=== PATIENT | male | born 1945 | race Caucasian/White ===

== ENCOUNTER 2023-09-09 11:50 | Emergency (ER) | payer OTHER, SELFPAY ==
[2023-09-09 11:55] VITALS: BP 127/44; PULSE 89; RESP 16; TEMP 37.1; O2SAT 99
--- NOTE | 2023-09-09 13:58 | ED.GENADUL_ITS ---
Discharge Plan Disposition Patient Disposition: Home Condition: Stable Discharge Details Clinical Impression: Acute UTI Primary Care Provider: Booker Day ED Provider: Charla Coulter Home Meds and New Rx's Prescriptions: New cephalexin 500 mg tablet 500 mg PO BID 10 Days Qty: 20 0RF Rx Instructions: Take one tablet by mouth twice daily x 10 days Continued losartan 25 mg tablet 25 mg PO DAILY pyridostigmine bromide 30 mg tablet 60 mg PO .5xd insulin glargine [Basaglar KwikPen U-100 Insulin] 100 unit/mL (3 mL) insulin pen 35 unit subcut BID Ozempic 0.25 mg or 0.5 mg (2 mg/3 mL) pen injector 0.5 mg subcut QWEEK Discharge Instructions Instructions: Urinary Tract Infection in Men (ED) Additional Instructions: You have a urinary tract infection. Please follow up with your primary care provider in the next 3 days. Take the antibiotic twice daily with yogurt or probiotic as directed for the next 10 days. You were given the first dose IV here. Increase oral fluids. Please take Tylenol or Ibuprofen with food every 4-6 hours as needed for pain and swelling. Referrals: Booker Day [Primary Care Provider] - 3 days HPI General Mode of arrival: ambulatory . Date/Time Provider Initiated Documentation: 09/09/23 13:03 . Limitations to Documentation: no limitations . Information obtained by: patient, RN notes reviewed and old records reviewed . HPI Narrative: 78 year old male presents to the ED with cc of myalgias, chills, dyruria and low BP that began this am [employer]. Patient has a history of bladder cancer and has been seen recently by nephrology also history of type 2 diabetes. He reports that around 2 AM this morning he got up to go to the bathroom and began having shaking chills, checked his temp at that time and it was 98.4. He also notes some dysuria and low blood pressure 90s over 50s prior to arrival with some blurry vision. Blood pressure slightly improved upon arrival, he is alert and oriented. He [facility] but did not want to drive down to the [place]. He did take his normal medications today. Related Data Home Medications Medication Instructions Recorded Confirmed cephalexin 500 mg tablet 500 mg PO BID UTI 10 days #20 tabs 09/09/23 insulin glargine 100 unit/mL (3 35 unit subcut BID 09/09/23 09/09/23 mL) subcutaneous pen (Basaglar KwikPen U-100 Insulin) losartan 25 mg tablet 25 mg PO DAILY 09/09/23 09/09/23 pyridostigmine bromide 30 mg tablet 60 mg PO .5xd 09/09/23 09/09/23 semaglutide 0.25 mg or 0.5 mg (2 0.5 mg subcut QWEEK 09/09/23 09/09/23 mg/3 mL) subcutaneous pen injector (Ozempic) Previous Rx's Medication Instructions Recorded cephalexin 500 mg tablet 500 mg PO BID UTI 10 days #20 tabs 09/09/23 Allergies Allergy/AdvReac Type Severity Reaction Status Date / Time sulfamethoxazole Allergy Intermediate Other (See Verified 09/09/23 12:03 [From Bactrim] Comment) trimethoprim [From Bactrim] Allergy Intermediate Other (See Verified 09/09/23 12:03 Comment) General Stated Complaint: Urinary KIMBERLEY: 3 Review of Systems All systems reviewed & are unremarkable except as noted in HPI and below Constitutional Constitutional: Reports body ache(s) and Reports chills Cardiovascular Cardiovascular: Reports as per HPI and Denies chest pain Genitourinary Genitourinary: Reports as per HPI and Reports dysuria Exam Narrative Exam Narrative: Constitutional: Alert and oriented x3. Appears stated age. Normal body habitus. Head: Normocephalic, no trauma. Eyes: Pupils PERRL, Red reflex noted, EOM's intact. Eyelids symmetrical without lesions, discharge, or swelling. ENT: Bilateral TM's WNL, External ear normal to inspection, no mastoid TTP, swelling, or erythema, Nasal turbinates WNL, no nasal discharge. Normal dentition, Posterior pharynx WNL, no exudate. Chest: RRR, Normal S1, S2, distal pulses intact. Resp: Lungs clear to auscultation bilaterally, no wheezes, rales, or rhonchi. Abdomen: Soft, non-distended, Normoactive bowel sounds all 4 quads. Musculoskeletal: Normal gait, 5/5 strength to all four extremities. Skin: No suspicious rashes or lesions. Capillary refill less than 2 sec. Neurologic: Cranial nerves II-XII intact. Alert and oriented x 3. Motor: No deficits noted. Sensory: Intact bilaterally all 4 extremities. Reflexes: DTR's intact bilaterally.. Hematologic/Lymphatic: No ecchymosis, no lymphadenopathy. Course Vital Signs Vital signs: Vital Signs Temperature 37.1 C 09/09/23 11:55 Pulse 89 09/09/23 11:55 Respiratory Rate 16 09/09/23 11:55 Blood Pressure 127/44 L 09/09/23 11:55 Pulse Oximetry 99 09/09/23 11:55 Temperature 37.1 C 09/09/23 11:55 Pulse 89 09/09/23 11:55 Respiratory Rate 16 09/09/23 11:55 Blood Pressure 127/44 L 09/09/23 11:55 Pulse Oximetry 99 09/09/23 11:55 Lab/Test Results Lab/Test Results: 09/09/23 13:35 Blood Blood Culture - Pending 09/09/23 13:35 Blood Blood Culture - Pending Medical Decision Making 78 year old male presents to the ED with cc of myalgias, chills, dyruria and low BP that began this am [employer]. Patient has a history of bladder cancer and has been seen recently by nephrology also history of type 2 diabetes. He reports that around 2 AM this morning he got up to go to the bathroom and began having shaking chills, checked his temp at that time and it was 98.4. He also notes some dysuria and low blood pressure 90s over 50s prior to arrival with some blurry vision. Blood pressure slightly improved upon arrival, he is alert and oriented. He is [facility] patient but did not want to drive down to the [place]. He did take his normal medications today. Workup ordered including CBC, CMP, lactate, UA, blood cultures 500 cc normal saline, and a gram of Rocephin. CBC shows white blood cell count of 20.54, absolute neutrophils 17, lactate slightly elevated at 1.5, BUN 28 creatinine 1.7 GFR is 40, glucose 255 bilirubin 1.5 urinalysis shows 15 ketones small blood positive nitrites moderate leukocytes 3-5 RBCs greater than 50 WBCs. Culture is pending at this time. Will give patient cephalexin for UTI. Patient discharged with instructions, remained hemodynamically stable. This text was generated using [employer] system, please disregard any oddities of phrase or misspellings. Lab Data Lab results reviewed: Yes I reviewed the patient's lab results. Labs: 09/09/23 10:30 Urine - Reflex from Ua Urine Culture - Pending 09/09/23 14:15 Blood Blood Culture - Pending 09/09/23 13:55 Blood Blood Culture - Pending Laboratory Tests Range/Units 09/09/23 09/09/23 10:30 13:55 WBC (4.4-10.8) 10^3/uL 20.54 H RBC (4.36-5.78) 10^6/uL 5.29 Hgb (13.5-17.5) g/dL 15.9 Hct (40.0-50.0) % 47.6 MCV (80-95) fL 90 MCH (27.0-33.0) pg 30.1 MCHC (32.0-36.0) % 33.4 RDW (11.8-14.1) % 13.5 Plt Count (130-400) 10^3/uL 165 MPV (8.0-11.0) fL 9.4 Immature Gran % 0.8 Neutrophils % 83.4 Lymphocytes % 6.1 Monocytes % 9.3 Eosinophils % 0.0 Basophils % 0.4 Nucleated RBC % (0.0-0.3) % 0.0 Absolute Neutrophils (1.2-6.7) 10^3/uL 17.13 H Absolute Lymphocytes (1.2-3.4) 10^3/uL 1.25 Absolute Monocytes (0.1-0.8) 10^3/uL 1.91 H Absolute Eosinophils (0.0-0.7) 10^3/uL 0.00 Absolute Basophils (0.0-0.2) 10^3/uL 0.08 VBG Lactate (0.6-1.4) mmol/L 1.5 H Sodium (136-145) mmol/L 137 Potassium (3.5-5.1) mmol/L 4.7 Chloride (98-107) mmol/L 104 Carbon Dioxide (21.0-32.0) mmol/L 27.5 Anion Gap (3-11) mmol/L 5.5 BUN (7-18) mg/dL 28 H Creatinine (0.70-1.30) mg/dL 1.7 H Est GFR (CKD-EPI 2020) (mL/min/1.73m2) 40.50 Glucose (74-106) mg/dL 255 H Calcium (8.5-10.1) mg/dL 8.6 Total Bilirubin (0.2-1.0) mg/dL 1.5 H AST (15-37) U/L 39 H ALT (16-63) U/L 38 Alkaline Phosphatase (46-116) U/L 110 Total Protein (6.4-8.2) g/dL 6.8 Albumin (3.4-5.0) g/dL 3.6 Urine Color (Yellow) Dark Yellow Urine Clarity (Clear) Cloudy Urine pH (5-8) 5.0 Ur Specific Browder (1.005-1.025) 1.025 Urine Protein (Neg-Trace) mg/dL 100 H Urine Ketones (Negative) mg/dL 15 H Urine Blood (Negative) Small H Urine Nitrite (Negative) Positive H Urine Bilirubin (Negative) Small H Urine Urobilinogen (Up to 0.2) mg/dL 1.0 H Ur Leukocyte Esterase (Negative) Moderate H Urine RBC (0-2) HPF 3-5 H Urine WBC (0-5) HPF >50 H Ur Epithelial Cells (Negative) HPF Few Urine Crystals (Negative) HPF Negative Urine Bacteria (Negative) HPF Many Urine Casts (Negative) LPF Negative Urine Mucus (Negative) Trace Ur Culture Indicated? Yes Urine Glucose (Negative) mg/dL Negative Quality:SDOH Health Related Social Needs: No Data to Display PFSH All Active Problems (Updated 09/09/23 @ 14:50 by Charla Coulter NP) Acute UTI (Acute) Social History Smoking risk assessment performed?: No
[2023-09-09 14:03] LABS: Lactate 1.5 mmol/L (0.6-1.4)
[2023-09-09 14:05] LABS: Abs Immature Grans 0.16 10^3/uL (0.0-0.06); Absolute Neutrophil Count 17.13 10^3/uL (1.2-6.7); Basophils % 0.4; HCT 47.6 % (40.0-50.0); HGB 15.9 g/dL (13.5-17.5); Immature Grans % 0.8; Lymphocytes % 6.1; MCH 30.1 pg (27.0-33.0); MCHC 33.4 % (32.0-36.0); MCV 90 fL (80-95); MPV 9.4 fL (8.0-11.0); Monocytes % 9.3; Neutrophils % 83.4; Platelet Count 165 10^3/uL (130-400); RBC 5.29 10^6/uL (4.36-5.78); RDW 13.5 % (11.8-14.1); RDW-SD 45.2 fL; WBC 20.54 10^3/uL (4.4-10.8)
[2023-09-09 14:07] LABS: Absolute Basophil Count 0.08 10^3/uL (0.0-0.2); Absolute Lymphocyte Count 1.25 10^3/uL (1.2-3.4); Absolute Monocyte Count 1.91 10^3/uL (0.1-0.8)
[2023-09-09 14:23] LABS: ALT 38 U/L (16-63); AST 39 U/L (15-37); Albumin 3.6 g/dL (3.4-5.0); Alkaline Phosphatase 110 U/L (46-116); Anion Gap 5.5 mmol/L (3-11); BUN 28 mg/dL (7-18); Bilirubin, Total 1.5 mg/dL (0.2-1.0); CO2 27.5 mmol/L (21.0-32.0); CREATININE 1.7 mg/dL (0.70-1.30); Calcium 8.6 mg/dL (8.5-10.1); Chloride 104 mmol/L (98-107); Glucose 255 mg/dL (74-106); Potassium 4.7 mmol/L (3.5-5.1); Sodium 137 mmol/L (136-145); Total Protein 6.8 g/dL (6.4-8.2)
[2023-09-09 14:28] VITALS: BP 127/44; PULSE 89; RESP 16; TEMP 37.1; O2SAT 99
[2023-09-09 14:37] LABS: Bilirubin Small (Negative); Blood Small (Negative); Clarity Cloudy (Clear); Glucose Negative (Negative); Ketones 15 mg/dL (Negative); Leukocyte Esterase Moderate (Negative); Nitrite Positive (Negative); Specific Gravity 1.025 (1.005-1.025)
[2023-09-09 14:42] LABS: Bacteria Many HPF (Negative); C & S Indicated? Yes; Casts Negative LPF (Negative); Crystals Negative HPF (Negative); Epithelial Cells Few HPF (Negative); Mucus Trace (Negative); WBC >50 HPF (0-5)
[2023-09-09 14:43] VITALS: BP 113/52; PULSE 73; RESP 18; O2SAT 95
[2023-09-09] MEDS: cefTRIAXone 1 GM/50 ML BAG IVPB (14:43)
[2023-09-09] MEDS: Normal Saline 500 ML IV (14:43)
[2023-09-09] MEDS: Cephalexin 500 MG CAP, 2 CAPS/BTL PO (15:35)
[2023-09-09 15:36] VITALS: BP 111/50; PULSE 68; RESP 18; O2SAT 96
== END 2023-09-09 15:36 | disposition home or self-care (01) ==
PROVIDERS: Emergency Provider Registered Nurse Emergency; PCP Nurse Practitioner Family
DX: N39.0 Urinary tract infection, site not specified; Z85.51 Personal history of malignant neoplasm of bladder; E11.9 Type 2 diabetes mellitus without complications
CPT/HCPCS: 36415; 80053; 87040; 87077; 99283; 81003; 81015; 83605; 85025; 87086; 87186; J0696

== ENCOUNTER 2025-04-09 10:52 | Emergency (ER) | payer OTHER, SELFPAY ==
[2025-04-09 10:57] VITALS: BP 176/83; PULSE 67; RESP 20; TEMP 36.8; O2SAT 94
--- NOTE | 2025-04-09 11:32 | W.ED.GENAD ---
Discharge Plan Disposition Patient Disposition: Home Condition: Good Discharge Details Clinical Impression: DVT (deep venous thrombosis) Primary Care Provider: Booker Day ED Provider: Natalie Spears Home Meds and New Rx's Prescriptions: New Eliquis 5 mg tablet 5 mg PO BID Qty: 60 0RF Rx Instructions: 10mg twice daily for 7 days (two tabs each time) then 5mg (one tab) twice a day Continued losartan 25 mg tablet 25 mg PO DAILY pyridostigmine bromide 30 mg tablet 60 mg PO .5xd insulin glargine [Basaglar KwikPen U-100 Insulin] 100 unit/mL (3 mL) insulin pen 35 unit subcut BID Ozempic 0.25 mg or 0.5 mg (2 mg/3 mL) pen injector 0.5 mg subcut QWEEK Discharge Instructions Instructions: Apixaban, Deep Vein Thrombosis (DVT) ED Additional Instructions: As we discussed, the ultrasound today showed a blood clot in your leg (deep vein thrombosis- DVT). This can be treated with a blood thinner, I have prescribed you Eliquis. This is an oral tablet taken twice daily. This will be two tablets twice a day for one week then one tablet twice a day. Your primary care physician will help determine when these medications can be stopped. As this will slow down the rate that you from form clots, please do not take other medications that can have the same affect such as Ibuprofen, Aleve, Motrin, Aspirin. Please take care not to hit your head- should this happen, please seek care emergently once again. Please elevate your leg and continue with the compression hose. Your primary care will follow up with you tomorrow at 0930AM via telehealth- they will need to continue the Eliquis prescription. If you develop chest pain, shortness of breath or other new/worsening symptoms, please seek care urgently once again. Stand Alone Forms: Portal Information Referrals: Jaimee Worrell [ [facility] STAFF PHYSICIAN, Medicine] - 04/10/25 9:30 am Discharge Data Discharge Date/Time-TO BE ENTERED AT DEPARTURE: 04/09/25 15:02 HPI General Date/Time Provider Initiated Documentation: 04/09/25 11:05. Limitations to Documentation: no limitations. Information obtained by: patient and RN notes reviewed. History of Present Illness 80 year old M presents to the emergency department with the chief complaint of left calf swelling and discomfort, described as moderate, and is localized to the left and lower extremity. Patient started experiencing this day(s) and it has been constant. No relieving factors improve symptom(s), Movement worsens symptoms . Patient notes no other symptoms.; denies chest pain, fever/chills and shortness of breath. Patient did receive the following treatments prior to arrival, none Related Data Home Medications Medication Instructions Recorded Confirmed insulin glargine 100 unit/mL (3 35 unit subcut BID 09/09/23 04/09/25 mL) subcutaneous pen (Basaglar KwikPen U-100 Insulin) losartan 25 mg tablet 25 mg PO DAILY 09/09/23 04/09/25 pyridostigmine bromide 30 mg tablet 60 mg PO .5xd 09/09/23 04/09/25 semaglutide 0.25 mg or 0.5 mg (2 0.5 mg subcut QWEEK 09/09/23 04/09/25 mg/3 mL) subcutaneous pen injector (Ozempic) apixaban 5 mg tablet (Eliquis) 5 mg PO BID #60 tabs 04/09/25 Previous Rx's Medication Instructions Recorded apixaban 5 mg tablet (Eliquis) 5 mg PO BID #60 tabs 04/09/25 Allergies Allergy/AdvReac Type Severity Reaction Status Date / Time sulfamethoxazole (From Allergy Intermediate Other (See Verified 04/09/25 11:03 Bactrim) Comment) trimethoprim (From Bactrim) Allergy Intermediate Other (See Verified 04/09/25 11:03 Comment) General Stated Complaint: RashLesion KIMBERLEY: 3 Review of Systems Constitutional Constitutional: Reports as per HPI, Denies chills, Denies fever(s) and Denies weakness Cardiovascular Cardiovascular: Reports as per HPI Respiratory Respiratory: Reports as per HPI and Denies cough Musculoskeletal Musculoskeletal: Reports as per HPI and Denies tingling Integumentary/Breasts Skin/Breast: Reports as per HPI, Denies rash and Denies wounds Neurologic Neurologic: Reports as per HPI, Denies tingling, Denies paresthesias and Denies weakness Exam Const General: cooperative, healthy appearing, comfortable, no acute distress, well developed and well groomed Nutritional Appearance: well nourished and overweight Orientation: alert and awake Resp Effort & Inspection: normal respiratory effort, able to speak in complete sentences and no respiratory distress Cardio Rate: regular rate Rhythm: regular rhythm Skin General skin exam: no rashes or lesions noted Lesions: no lesions Rashes: no rashes Trauma: no lacerations or abrasions Neuro General: patient alert and patient awake Cognition: normal cognition Speech: speech normal Gait: gait assisted (cane) Motor: muscle tone normal throughout Sensory Exam: no sensory deficits noted Extrem Left lower extremity: edema Details: pitting and 2+, no joint enlargement and lower leg Details: tenderness Location: of the posterior calf and localized swelling Location: of the proximal lower leg and of the mid lower leg; no palpable cords and no unusual warmth Course Vital Signs Vital signs: Vital Signs Temperature 36.8 C 04/09/25 10:57 Pulse 67 04/09/25 10:57 Respiratory Rate 20 04/09/25 10:57 Blood Pressure 176/83 H 04/09/25 10:57 Pulse Oximetry 94 04/09/25 10:57 Temperature 36.8 C 04/09/25 10:57 Pulse 67 04/09/25 10:57 Respiratory Rate 20 04/09/25 10:57 Blood Pressure 176/83 H 04/09/25 10:57 Blood Pressure Position Sitting 04/09/25 10:57 Pulse Oximetry 94 04/09/25 10:57 Oxygen Delivery Method Room Air 04/09/25 10:57 Oxygen Flow Rate 0 04/09/25 10:57 Medical Decision Making The patient is a pleasant 80-year-old gentleman presenting with chief complaint of left calf erythema and discomfort. He reports began about 3 days ago and has progressively been increasing. He does note that the redness did go away after a shower. He denies any fevers or chills. No trauma. He does state that he was ill recently and did have a prolonged period of being sedentary. He denies a history of DVT, is not anticoagulated. He does state that he has had cellulitis in this area before which initially prompted him to have this concern. Does have history of diabetes, is [facility] but states he was not able to get in with local primary care. On exam, patient appears nontoxic. Resting comfortably no acute distress. He is hemodynamically stable. Exam the left lower extremity shows pitting edema of the left lower extremity more much more pronounced on the right. He does have a large well-healed incision over the knee, history of TKA but no erythema or warmth over the knee itself. Does have some few scattered areas of petechia on the anterior aspect of the left calf. He does have Pain with palpation. No palpable cord. Will obtain baseline labs. At this point, I do not see any indication to suggest cellulitis. However, with him being sedentary recently as well as the circumferential swelling and calf tenderness, I am concerned for DVT and will obtain a DVT study. Labs are unremarkable. DVT study is positive. Discussed with patient. He has no indication for PE or cardiac strain based on history and exam. Will treat with oral DOAC. Discussed risks/benefits with patient. We discussed alternatives and he understands risks of not treating. He is agreeable to the medications. [facility] to ensure he is able ot get the Eliquis. Begin the starting dose here, will send home with dosing for tonight and tomorrow morning. [facility] will [facility] after they are able to have a virtual visit with the patient, they have agreed to see him tomorrow morning and will take over the prescribing at that time. We discussed the risks of these medication, discussed bleeding risks and when to seek care urgently once again. Also discussed symptoms of the DVT propogating and downstream effects such as a PE. All of his questions and concerns were addressed, he is in agreement with this plan. PFSH All Active Problems (Updated 04/09/25 @ 14:28 by CHANDA Molina) DVT (deep venous thrombosis) (Chronic) Social History Smoking risk assessment performed?: No
[2025-04-09 12:09] LABS: Abs Immature Grans 0.07 10^3/uL (0.0-0.06); HCT 45.8 % (40.0-50.0); HGB 15.1 g/dL (13.5-17.5); Immature Grans % 0.9 %; MCH 29.7 pg (27.0-33.0); MCHC 33.0 % (32.0-36.0); MCV 90 fL (80-95); MPV 9.1 fL (8.0-11.0); Platelet Count 211 10^3/uL (130-400); RBC 5.09 10^6/uL (4.36-5.78); RDW 12.7 % (11.8-14.1); RDW-SD 42.2 fL; WBC 8.17 10^3/uL (4.4-10.8)
[2025-04-09 12:23] LABS: INR 1.1 (0.9-1.1); PTT Activated 26.3 sec (20.6-30.2); Prothrombin Time 11.0 sec (9.1-11.1)
[2025-04-09 12:28] LABS: ALT 31 U/L (10-49); AST 35 U/L (<34); Albumin 4.0 g/dL (3.4-5.0); Alkaline Phosphatase 157 U/L (46-116); Anion Gap 4.9 mmol/L (3-11); BUN 22 mg/dL (9-23); Bilirubin, Total 0.70 mg/dL (0.2-1.2); CO2 28.1 mmol/L (20.0-31.0); Calcium 8.6 mg/dL (8.3-10.6); Chloride 108 mmol/L (98-107); Glucose 138 mg/dL (74-106); Potassium 5.0 mmol/L (3.5-5.1); Sodium 141 mmol/L (136-145); Total Protein 6.8 g/dL (5.7-8.2)
--- NOTE | 2025-04-09 13:15 | DI.US_ITS ---
Exam(s) US LOWER EXTREMITY VENOUS LT EXAM: US LOWER EXTREMITY VENOUS LT CLINICAL HISTORY: swelling, discomfort, sedentary. TECHNIQUE: Lower extremity venous ultrasound performed using grayscale, color- flow, and spectral Doppler analysis. COMPARISON: No exams were available for comparison FINDINGS: The common femoral, femoral and popliteal veins demonstrate thrombus beginning in the common femoral vein extending through the mid posterior tibial vein. The profundus femoral vein and saphenous vein are free of thrombus. No saphenous vein thrombosis or other superficial venous thrombosis is seen. No hematoma or Ssoa's cyst is seen. Lower extremity edema. IMPRESSION: Deep venous thrombosis from common femoral through mid posterior tibial veins. DATA REPOSITORY:
[2025-04-09 13:59] VITALS: BP 165/65; PULSE 74; RESP 16; O2SAT 96
[2025-04-09] MEDS: Apixaban 5 MG TAB 10 MG PO (14:40)
[2025-04-09] MEDS: Apixaban 5 MG TAB 20 MG PO (15:00)
== END 2025-04-09 15:02 | disposition home or self-care (01) ==
PROVIDERS: Emergency Provider Physician Assistant; PCP Nurse Practitioner Family
DX: I82.412 Acute embolism and thrombosis of left femoral vein (principal)
CPT/HCPCS: 99284 ×2; 36416; 82962; 80053; 85025; 85610; 85730; 93971